=== PATIENT | female | born 2000 | race Caucasian/White ===

== ENCOUNTER 2023-06-07 08:39 | Emergency (ER) | payer SELFPAY ==
[~2023-06-07] VITALS: Ht 190.5 cm; Wt 60.0 kg
[2023-06-07 08:44] VITALS: BP 122/71; PULSE 113; RESP 18; TEMP 98.4; O2SAT 97
== END 2023-06-07 09:18 | disposition home or self-care (01) ==
LOC: ER 08:39
DX: F10.10 Alcohol abuse, uncomplicated (principal); V49.49XA Driver injured in collision with other motor vehicles in traffic accident, initial encounter; Y93.89 Activity, other specified; Y92.89 Other specified places as the place of occurrence of the external cause; Y99.8 Other external cause status
CPT/HCPCS: 99283